=== PATIENT | female | born 1990 | race Caucasian/White ===

== ENCOUNTER 2018-11-27 09:09 | Inpatient (IN) | payer BC, MEDICAID ==
[2018-11-27 10:10] LABS: ADD UMIC YES; UR ASCORBIC ACID NEGATIVE (NEGATIVE); UR BACTERIA FEW /HPF (NONE SEEN); UR BILIRUBIN (Dip) NEGATIVE (NEGATIVE); UR BLOOD (Dip) NEGATIVE (NEGATIVE); UR CLARITY SLIGHTLY CLOUDY (CLEAR); UR COLOR YELLOW (YELLOW); UR GLUCOSE (Dip) NEGATIVE (NEGATIVE); UR KETONES (Dip) NEGATIVE (NEGATIVE); UR LEUKOCYTE ESTERASE (Dip) 3+ Leu/ul (NEGATIVE); UR MUCUS FEW /HPF (NONE SEEN); UR NITRITE (Dip) NEGATIVE (NEGATIVE); UR NONSQUAMOUS EPITHELIAL CELL 1 /HPF (NONE SEEN); UR RBC 2 /HPF (0-5); UR SPECIFIC GRAVITY (Dip) 1.013 (1.003-1.030); UR SQUAMOUS EPITHELIAL CELL FEW /HPF (FEW); UR TOTAL PROTEIN (Dip) NEGATIVE (NEGATIVE); UR UROBILINOGEN (Dip) NEGATIVE (NEGATIVE); UR WBC 9 /HPF (0-5)
[2018-11-27] MEDS ORDERED: METHYLERGONOVINE 0.2 MG INJ IM (11:00)
[2018-11-27] MEDS ORDERED: LIDOCAINE 1% (MPF) 30 ML INJ INJ (11:00)
[2018-11-27] MEDS ORDERED: MISOPROSTOL 200 MCG TAB PR (11:00)
[2018-11-27] MEDS ORDERED: OXYTOCIN 30 UNITS/LR 500 ML IV (11:00)
[2018-11-27] MEDS ORDERED: CARBOPROST 250 MCG INJ IM (11:00)
[2018-11-27] MEDS ORDERED: BUTORPHANOL 2 MG INJ IV ×2 (11:00)
[2018-11-27] MEDS ORDERED: AMPICILLIN 2 GM/NS (PMX) 100 ML IV (11:00)
[2018-11-27] MEDS: LACTATED RINGER'S 1,000 ML IV ×2 (11:26→19:34)
[2018-11-27 12:18] LABS: ADD MAN DIFF? NO
[2018-11-27 12:21] LABS: WHITE BLOOD COUNT 7.8 10^3/ul (4.8-10.8)
[2018-11-27 12:21] LABS: BASOPHILS % 0.4 % (0.0-2.0); EOSINOPHILS % 0.5 % (0.0-7.0); HEMATOCRIT 35.4 % (37.0-47.0); HEMOGLOBIN 11.7 g/dl (12.0-16.0); LYMPHOCYTES # 1.6 10^3/ul (0.8-2.9); LYMPHOCYTES % 20.5 % (15.0-51.0); MEAN CORPUSCULAR HEMOGLOBIN 29.3 pg (29.0-33.0); MEAN CORPUSCULAR HGB CONC 33.1 g/dl (32.0-37.0); MEAN CORPUSCULAR VOLUME 88.5 fl (82.0-101.0); MONOCYTE # 0.5 10^3/ul (0.3-0.9); MONOCYTES % 6.4 % (0.0-11.0); NEUTROPHIL # 5.6 10^3/ul (1.6-7.5); NEUTROPHILS % 71.7 % (39.0-77.0); PLATELET COUNT 177 10^3/UL (140-415)
[2018-11-27 12:27] LABS: INR 0.88; PT RATIO 0.9
[2018-11-27 12:28] LABS: PARTIAL THROMBOPLASTIN TIME 25.1 Sec (23.0-35.0)
[2018-11-27 12:55] LABS: HEPATITIS B SURFACE ANTIGEN NEGATIVE (NEGATIVE)
[2018-11-27] MEDS: MISOPROSTOL 50 MCG CAPSULE PO ×3 (13:01→22:15)
[2018-11-27] MEDS ORDERED: AMPICILLIN 1 GM/NS (PMX) 50 ML IV (15:00)
[2018-11-27 17:16] LABS: RAPID PLASMA REAGIN NONREACTIVE (NR)
[2018-11-28] MEDS ORDERED: MINERAL OIL LIGHT 10 ML VIAL TOP (03:30)
[2018-11-28] MEDS: LACTATED RINGER'S 1,000 ML IV ×4 (03:37→23:40)
[2018-11-28] MEDS: MISOPROSTOL 50 MCG CAPSULE PO ×3 (04:22→12:16)
[2018-11-28] MEDS: OXYTOCIN 30 UNITS/LR 500 ML IV (20:25)
[2018-11-29] MEDS ORDERED: FENTAnyl 2MCG/ML-ROPIV 0.2% 100 ML BAG EPI
[2018-11-29] MEDS ORDERED: NALOXONE (0.4 MG/ML) INJ IV
[2018-11-29] MEDS: OXYTOCIN 30 UNITS/LR 500 ML IV ×2 (03:39→03:40)
[2018-11-29] MEDS: LACTATED RINGER'S 1,000 ML IV* (05:24)
[2018-11-29] MEDS ORDERED: HYDROCODONE/APAP (5/325) TAB PO (05:30)
[2018-11-29] MEDS ORDERED: DIBUCAINE 1% 30 GM OINT TOP (05:30)
[2018-11-29] MEDS ORDERED: ACETAMINOPHEN 325 MG TAB PO (05:30)
[2018-11-29] MEDS ORDERED: MISOPROSTOL 200 MCG TAB PR (05:30)
[2018-11-29] MEDS ORDERED: METHYLERGONOVINE 0.2 MG INJ IM (05:30)
[2018-11-29] MEDS ORDERED: CARBOPROST 250 MCG INJ IM (05:30)
[2018-11-29] MEDS ORDERED: OXYTOCIN 30 UNITS/LR 500 ML IV (05:30)
[2018-11-29] MEDS: BENZOCAINE 20% 56 ML SPRAY TOP (06:10)
[2018-11-29] MEDS: IBUPROFEN 600 MG TAB PO ×4 (06:10→23:46)
[2018-11-29] MEDS: WITCH HAZEL/GLYCERIN PAD PR (06:10)
[2018-11-29] MEDS: SENNA/DOCUSATE NA (8.6MG/50MG) TAB PO ×2 (09:32→21:17)
[2018-11-30] MEDS: IBUPROFEN 600 MG TAB PO ×4 (05:23→23:31)
[2018-11-30 07:37] LABS: ADD MAN DIFF? NO
[2018-11-30 07:40] LABS: WHITE BLOOD COUNT 9.2 10^3/ul (4.8-10.8)
[2018-11-30 07:40] LABS: BASOPHILS % 0.3 % (0.0-2.0); EOSINOPHILS # 0.1 10^3/ul (0.0-0.5); EOSINOPHILS % 0.9 % (0.0-7.0); HEMOGLOBIN 11.1 g/dl (12.0-16.0); LYMPHOCYTES # 2.1 10^3/ul (0.8-2.9); LYMPHOCYTES % 23.2 % (15.0-51.0); MEAN CORPUSCULAR HEMOGLOBIN 29.8 pg (29.0-33.0); MEAN CORPUSCULAR HGB CONC 32.6 g/dl (32.0-37.0); MEAN CORPUSCULAR VOLUME 91.4 fl (82.0-101.0); MEAN PLATELET VOLUME 11.2 fl (7.4-10.4); MONOCYTE # 0.5 10^3/ul (0.3-0.9); MONOCYTES % 5.7 % (0.0-11.0); NEUTROPHIL # 6.3 10^3/ul (1.6-7.5); NEUTROPHILS % 69.1 % (39.0-77.0); PLATELET COUNT 161 10^3/UL (140-415); RED BLOOD COUNT 3.72 10^6/ul (4.20-5.40)
[2018-11-30] MEDS: SENNA/DOCUSATE NA (8.6MG/50MG) TAB PO ×2 (09:49→20:54)
[2018-12-01] MEDS: IBUPROFEN 600 MG TAB PO ×2 (05:33→12:21)
[2018-12-01] MEDS ORDERED: DIPHTH/TET/ACEL PERTUSS (ADULT) 0.5 ML VIAL IM* (09:00)
[2018-12-01] MEDS: SENNA/DOCUSATE NA (8.6MG/50MG) TAB PO (09:54)
== END 2018-12-01 12:25 | disposition home or self-care (01) | DRG 807 ==
LOC: OBT 09:09 → PP1 11-29 04:58 → L-D 09:10 → OBT 10:40 → L-D 10:40
PROC: 10E0XZZ Delivery of Products of Conception, External Approach (ICD-10-PCS; principal; 2018-11-29)
PROC: 0KQM0ZZ Repair Perineum Muscle, Open Approach (ICD-10-PCS; 2018-11-29)
DX: O48.0 Post-term pregnancy (principal); Z37.0 Single live birth; O70.1 Second degree perineal laceration during delivery; Z3A.40 40 weeks gestation of pregnancy
CPT/HCPCS: 62322; 76815; 76818; 81001; 85025; 85610; 85730; 86592; 86850; 86900; 86901; 87340; 99464